=== PATIENT | male | born 1990 | race Caucasian/White ===

== ENCOUNTER 2016-10-28 14:54 | Emergency (ER) | payer OTHER ==
[~2016-10-28] VITALS: Ht 180.3 cm; Wt 74.8 kg
--- NOTE | ~2016-10-28 | CR106 ---
[facility]. [facility] A Service of [facility] & [facility] RADIOLOGY TEXT RESULTS PATIENT: CORIE STAPLETON LOCATION: SED : [birth year] UNIT #: [id number] AGE: [address]: KAMRYN YOU SEX: M ORDER DR: [id number] [address] [address] [id number] MR#: [id number] Acc #: [id number] NAME: CORIE STAPLETON : 1990 SEX: M STUDY DATE/TIME: 10/28/2016 16:17 UNIT: SED ROOM: STUDY DESCRIPTION: CR Femur 2 Views Lt Attending Physician: Kamryn You Ordering Physician: Kamryn You Primary Care Physician: Manuel Montero M.D. MEDICAL IMAGING REPORT This report is preliminary unless electronic signature is present. EXAM Left femur series 10/28/2016 HISTORY Trauma. Fell down hill knee hit tree 10/28/2016 approximately 1400 hours. FINDINGS AP and lateral views of the left femur are presented. No traumatic fracture or malalignment. Hip and knee joints intact. No traumatic soft tissue abnormality suggested. Visualized bony pelvis intact. Visualized bowel gas pattern normal. Dictated by... Wade Byrnes M.D. THIS IS AN ELECTRONICALLY VERIFIED REPORT Wade Byrnes M.D. at 10/29/2016 2:37 PM ARCADIO/chloe TD: 10/29/2016 00:20 JOB #: [id number] MEDICAL IMAGING REPORT Page 1 of 1
--- NOTE | ~2016-10-28 | CR172 ---
[facility] A Service of [facility] & [facility] RADIOLOGY TEXT RESULTS PATIENT: CORIE STAPLETON LOCATION: SED : [birth year] UNIT #: [id number] AGE: [address]: KAMRYN YOU SEX: M ORDER DR: [id number] [address] [address] [id number] E MR#: [id number] Acc #: [id number] NAME: CORIE STAPLETON : 1990 SEX: M STUDY DATE/TIME: 10/28/2016 16:17 UNIT: SED ROOM: STUDY DESCRIPTION: CR Knee 3 Views Lt Attending Physician: (William) Kamryn You Ordering Physician: William You Primary Care Physician: Manuel Montero M.D. MEDICAL IMAGING REPORT This report is preliminary unless electronic signature is present. EXAM Left knee series, 10/28/2016. HISTORY Trauma. Fell down hill. Knee hit tree 10/28/2016, 1400 hours. FINDINGS AP, lateral and sunrise views of the left knee are presented. Normal bony mineralization. No traumatic fracture or malalignment. The joint spaces are intact. No soft tissue defect, subcutaneous air or radiodense foreign body. Trace effusion suggested in the suprapatellar recess. Dictated by... Wade Byrnes M.D. THIS IS AN ELECTRONICALLY VERIFIED REPORT Wade Byrnes M.D. at 10/29/2016 2:37 PM ARCADIO/steffanie TD: 10/28/2016 23:59 JOB #: [id number] MEDICAL IMAGING REPORT Page 1 of 1
[~2016-10-28 14:54] MED LIST: ALBUTEROL17 GM INH; AMOXICILLIN PO; BENTYL20 MG PO; BENZONATATE PO; DIAZEPAM10 MG PO; FLEXERIL10 MG PO; FLONASE16 GM; HYDROCODON-ACE1 EAC7 PO; LORTAB 7.5-5001 TAB PO; MUSCLE RELAXER; NO MEDICATIONS; PHENERGAN25 M1 PO; PRILOSEC20 M1 PO; SLEEPING PILL; TYLENOL #3 PO; VISTARIL PO; VOLTAREN75 MG PO; ZITHROMAX1 G/PKT PO
== END 2016-10-28 18:00 | disposition home or self-care (01) ==
LOC: SED 14:54
DX: M25.562 Pain in left knee (principal); F17.210 Nicotine dependence, cigarettes, uncomplicated; Z88.2 Allergy status to sulfonamides
CPT/HCPCS: 29530; 73552; 73562; 99283